=== PATIENT | female | born 1975 | race African-American/Black ===

== ENCOUNTER 2017-05-21 03:00 | Emergency (ER) | payer OTHER ==
[~2017-05-21] VITALS: Ht 170.2 cm; Wt 84.1 kg
[2017-05-21] MEDS ORDERED: [UNRECOGNIZED DRUG - REMARK] PO (03:11)
[2017-05-21] MEDS ORDERED: PredniSONE 20 MG TABLET PO ONE (04:00)
[2017-05-21 05:50] VITALS: BP 95/64
== END 2017-05-21 06:44 | disposition home or self-care (01) ==
LOC: EMS 03:02
DX: T50.8X5A Adverse effect of diagnostic agents, initial encounter (principal); Y92.89 Other specified places as the place of occurrence of the external cause
CPT/HCPCS: 99283; J7512